=== PATIENT | male | born 1980 | race Caucasian/White ===

== ENCOUNTER 2018-01-21 20:15 | Emergency (ER) | payer SELFPAY ==
[2018-01-21 20:24] VITALS: BP 145/88; PULSE 71; TEMP 98; BMI 31.8
--- NOTE | 2018-01-21 20:44 | PDOC ---
Rapid Medical Evaluation Time Seen by Provider: 01/21/18 20:18 Medical Evaluation: 01/21/18 20:18 The patient presents with a chief complaint of: shaking, withdrawal from alcohol last drink today.wants detox. I have performed a brief in-person evaluation of this patient; Pertinent physical exam findings: ambulatory, in no respiratory distress I have ordered the following: labs, ivf, tox screen The patient will proceed to the ED for further evaluation.
[2018-01-21 20:50] LABS: BASO % 0.4 % (0-2.0); EOS % 0.8 % (0-4.5); HEMATOCRIT 45.2 % (35.4-49); HEMOGLOBIN 15.6 GM/dL (11.7-16.9); LYMPH % 50.9 % (8-40); MCH 32.5 pg (25.7-33.7); MCHC 34.6 g/dl (32.0-35.9); MEAN PLT VOLUME 8.6 fl (7.5-11.1); MONO % 5.1 % (3.8-10.2); NEUT % 42.8 % (42.8-82.8); PLATELET COUNT 193 K/MM3 (134-434); RBC 4.81 M/mm3 (4.00-5.60); RDW 13.4 % (11.9-15.9); WHITE BLOOD COUNT 6.9 K/mm3 (4.0-10.0)
[2018-01-21 20:59] LABS: COCAINE, UR NEGATIVE ng/ml (CUTOFF=300); URINE AMPHETAMINES NEGATIVE ng/ml (CUTOFF=500); URINE BARBITURATES NEGATIVE ng/ml (CUTOFF=200); URINE BENZODIAZEPINES NEGATIVE ng/ml (CUTOFF=200)
[2018-01-21 21:00] LABS: METHADONE, UR NEGATIVE ng/ml (CUTOFF=300); OPIATES, URI NEGATIVE ng/ml (CUTOFF=300); PHENCYCLIDINE,URINE NEGATIVE ng/ml (CUTOFF=25)
[2018-01-21 21:04] LABS: URINE APPEARANCE CLEAR; URINE BILIRUBIN NEGATIVE (NEGATIVE); URINE BLOOD 1+ (NEGATIVE); URINE COLOR COLORLESS; URINE GLUCOSE (UA) 1+ (NEGATIVE); URINE KETONE NEGATIVE (NEGATIVE); URINE LEUK ESTERASE NEGATIVE (NEGATIVE); URINE NITRITE NEGATIVE (NEGATIVE); URINE PROTEIN 1+ (NEGATIVE); URINE UROBILINOGEN NEGATIVE mg/dL (0.2-1.0)
[2018-01-21 21:10] LABS: ALBUMIN 4.6 g/dl (3.4-5.0); ALK PHOS 131 U/L (45-117); ANION GAP 12 (8-16); BILIRUBIN,TOTAL 0.5 mg/dL (0.2-1.0); BLOOD UREA NITROGEN 6 mg/dL (7-18); CHLORIDE 99 mmol/L (98-107); CO2 24 mmol/L (21-32); CREATININE 0.7 mg/dL (0.7-1.3); GLUCOSE,RANDOM 198 mg/dL (74-106); SGOT/AST 136 U/L (15-37); SGPT/ALT 180 U/L (12-78); SODIUM 135 mmol/L (136-145); TOT PROT 8.6 g/dl (6.4-8.2)
--- NOTE | 2018-01-21 22:35 | PDOC ---
Attending Attestation - Resident Resident Name: Cierra Taveras - ED Attending Attestation I have performed the following: I have examined & evaluated the patient, The case was reviewed & discussed with the resident, I agree w/resident's findings & plan, Exceptions are as noted - HPI HPI: 01/21/18 23:45 pt eloped prior to my eval - Physicial Exam PE: 01/21/18 23:45 pt eloped prior to my eval - Medical Decision Making 01/21/18 22:35 I, Dr. Kimberli Prieto, DO, attest that this document has been prepared under my direction and personally reviewed by me in its entirety. I further attest, that it accurately reflects all work, treatment, procedures and medical decision -making performed by me. 01/21/18 23:45 Pt eloped prior to my evaluation.
--- NOTE | 2018-01-21 22:36 | PDOC ---
History of Present Illness - General Chief Complaint: Substance Abuse Stated Complaint: SUGAR PROBLEMS Time Seen by Provider: 01/21/18 20:18 History Source: Patient Exam Limitations: Language Barrier - History of Present Illness Initial Comments: 01/21/18 23:00 37 y/o M with no significant PMH who presents to the ED c/o "shakiness" over the past week. As per pt, over the last week, he had "so many beers, that he could not count." He has been coming home drunk every day. Today, pt drank four beers, with his last drink at 8 pm right before he came to the ED. Pt endorses upper extremity tremor during this time, but denies nausea, headache, or any auditory/visual hallucinations. Pt is concerned that his current sx may be from his blood sugar, as his mother is diabetic. Concerning detox, pt states that he does not want to go because he "can quit on his own." CIWA score 8 - however last drink very recent ~3 hrs ago. PMH: none PsxH: none allergies: NKDA FH: mother - diabetes SH: started smoking cigarettes 3 months ago - 2-3 cigs/day. Has drank alcohol heavily for ten years. Denies recreational drug use. 01/21/18 23:04 Past History - Past Medical History Allergies/Adverse Reactions: Allergies Allergy/AdvReac Type Severity Reaction Status Date / Time No Known Allergies Allergy Verified 01/21/18 20:19 COPD: No - Suicide/Smoking/Psychosocial Hx Smoking History: Current some day smoker Number of Cigarettes Smoked Daily: 2 Information on smoking cessation initiated: No Hx Alcohol Use: Yes Review of Systems - Review of Systems Able to Perform ROS?: Yes Is the patient limited Cambodian proficient: Yes Musculoskeletal: Yes: Muscle Weakness, Other (tremors, shakes) All Other Systems: Reviewed and Negative *Physical Exam - Vital Signs Last Vital Signs Temp Pulse Resp BP Pulse Ox 98 F 71 18 145/88 96 01/21/18 20:20 01/21/18 20:20 01/21/18 20:20 01/21/18 20:20 01/21/18 20:20 - Physical Exam General Appearance: Yes: Alcohol on Breath HEENT: positive: EOMI, [place] Neck: positive: Supple Respiratory/Chest: positive: Lungs Clear, Normal Breath Sounds Cardiovascular: positive: Regular Rhythm, Regular Rate, S1, S2 Vascular Pulses: Dorsalis-Pedis (R): 2+, Doralis-Pedis (L): 2+ Gastrointestinal/Abdominal: positive: Normal Bowel Sounds, Soft Musculoskeletal: positive: Other (+mild tremor in upper extremities ) Extremity: positive: Normal Range of Motion Neurologic: positive: in home aide II-XII NML intact ED Treatment Course - LABORATORY CBC & Chemistry Diagram: 01/21/18 20:30 01/21/18 20:30 - ADDITIONAL ORDERS Additional order review: Laboratory Results 01/21/18 01/21/18 01/21/18 20:36 20:36 20:36 Sodium Potassium Chloride Carbon Dioxide Anion Gap BUN Creatinine Creat Clearance w eGFR Random Glucose Calcium Total Bilirubin AST ALT Alkaline Phosphatase Total Protein Albumin Urine Color Colorless Urine Appearance Clear Urine pH 7.0 Ur Specific Allons 1.002 Urine Protein 1+ H Urine Glucose (UA) 1+ H Urine Ketones Negative Urine Blood 1+ H Urine Nitrite Negative Urine Bilirubin Negative Urine Urobilinogen Negative Ur Leukocyte Esterase Negative Urine WBC (Auto) None Urine RBC (Auto) <1 Opiates Screen Negative Methadone Screen Negative Barbiturate Screen Negative Phencyclidine Screen Negative Ur Amphetamines Screen Negative MDMA (Ecstasy) Screen Negative Benzodiazepines Screen Negative Cocaine Screen Negative U Marijuana (THC) Screen Negative Alcohol, Quantitative 368.02 H* 01/21/18 20:30 Sodium 135 L Potassium 4.0 Chloride 99 Carbon Dioxide 24 Anion Gap 12 BUN 6 L Creatinine 0.7 Creat Clearance w eGFR > 60 Random Glucose 198 H Calcium 9.0 Total Bilirubin 0.5 AST 136 H ALT 180 H Alkaline Phosphatase 131 H Total Protein 8.6 H Albumin 4.6 Urine Color Urine Appearance Urine pH Ur Specific Allons Urine Protein Urine Glucose (UA) Urine Ketones Urine Blood Urine Nitrite Urine Bilirubin Urine Urobilinogen Ur Leukocyte Esterase Urine WBC (Auto) Urine RBC (Auto) Opiates Screen Methadone Screen Barbiturate Screen Phencyclidine Screen Ur Amphetamines Screen MDMA (Ecstasy) Screen Benzodiazepines Screen Cocaine Screen U Marijuana (THC) Screen Alcohol, Quantitative 01/21/18 20:30 RBC 4.81 MCV 94.0 MCHC 34.6 RDW 13.4 MPV 8.6 Neutrophils % 42.8 Lymphocytes % 50.9 H Monocytes % 5.1 Eosinophils % 0.8 Basophils % 0.4 Medical Decision Making - Medical Decision Making 01/21/18 23:09 37 y/o M with no significant PMH who presents to the ED c/o "shakiness" over the past week. Pt with likely start of alc withdrawal. Shakes would usually not start until 48-72 hrs after. Labs have been checked - with alc level 368. 01/21/18 23:45 pt eloped *DC/Admit/Observation/Transfer Diagnosis at time of Disposition: Alcohol withdrawal - Discharge Dispostion Disposition: ELOPED - Referrals - Patient Instructions - Post Discharge Activity
== END 2018-01-22 00:24 | disposition home or self-care (01) ==
LOC: JER 20:15
DX: F10.239 Alcohol dependence with withdrawal, unspecified (principal)
CPT/HCPCS: 36415; 80053; 80307; 81003; 81015; 85025; 99282-25